=== PATIENT | female | born 1980 | race Caucasian/White ===

== ENCOUNTER 2021-12-18 11:25 | Emergency (ER) | payer OTHER ==
[2021-12-18 11:54] VITALS: BP 119/80; PULSE 101; RESP 17; TEMP 97.8; BMI 32.1
[2021-12-18] MEDS ORDERED: ACETAMINOPHEN 1000 MG/100 ML BAG IVPB ONE (12:52)
[2021-12-18] MEDS ORDERED: SODIUM CHLORIDE 0.9% 500 ML INFUS.BAG IV ONE (12:52)
[2021-12-18] MEDS ORDERED: KETOROLAC TROMETHAMINE 30 MG/1 ML VIAL IVPUSH ONE (12:52)
[2021-12-18] MEDS ORDERED: KETOROLAC TROMETHAMINE 30 MG/1 ML VIAL ONE (13:15)
[2021-12-18] MEDS ORDERED: ACETAMINOPHEN INJECTION 100 ML IVPB ONE (13:15)
[2021-12-18 13:56] LABS: BASO % 0.8 % (0-2.0); EOS % 0.3 % (0-4.5); HEMATOCRIT 26.2 % (32.4-45.2); HEMOGLOBIN 7.9 GM/dL (10.7-15.3); LYMPH % 11.3 % (8-40); MCH 18.8 pg (25.7-33.7); MCHC 30.1 g/dl (32.0-36.0); MEAN CELL VOLUME 62.6 fl (80-96); MEAN PLT VOLUME 8.4 fl (7.5-11.1); MONO % 8.7 % (3.8-10.2); NEUT % 78.9 % (42.8-82.8); PLATELET COUNT 284 10^3/uL (134-434); RBC 4.19 M/mm3 (3.60-5.2); RDW 19.2 % (11.6-15.6); WHITE BLOOD COUNT 13.3 K/mm3 (4.0-10.0)
[2021-12-18 14:14] LABS: CALCIUM 8.7 mg/dL (8.5-10.1)
[2021-12-18 14:15] LABS: ALBUMIN 3.2 g/dl (3.4-5.0); BLOOD UREA NITROGEN 4.4 mg/dL (7-18)
[2021-12-18 14:18] LABS: CREATININE 0.4 mg/dL (0.55-1.3)
[2021-12-18 14:19] LABS: BILIRUBIN,TOTAL 0.5 mg/dL (0.2-1); TOT PROT 7.3 g/dl (6.4-8.2)
[2021-12-18 14:33] LABS: ANISOCYTOSIS 3+; MACROCYTOSIS 0
[2021-12-18 15:03] LABS: HCG,QUALITATIVE URINE Negative
[2021-12-18 15:10] LABS: EPI CELLS 20 /uL (0-25.1); HYALINE CASTS 15 /uL (0-3.1); PH,URINE 5.5 (5.0-8.0); URINE APPEARANCE CLEAR; URINE BACTERIA 3159 /uL (0-1359); URINE BILIRUBIN NEGATIVE (NEGATIVE); URINE COLOR YELLOW; URINE GLUCOSE (UA) NEGATIVE (NEGATIVE); URINE KETONE TRACE (NEGATIVE); URINE LEUK ESTERASE TRACE (NEGATIVE); URINE NITRITE NEGATIVE (NEGATIVE); URINE PROTEIN 1+ (NEGATIVE); URINE UROBILINOGEN 0.2 mg/dL (0.2-1.0); URINE WBC 165 /uL (0-25.8)
[2021-12-18 15:19] LABS: URINE RBC 65 /uL (0-23.9)
== END 2021-12-18 18:40 | disposition home or self-care (01) ==
LOC: JER 11:25
PROC: 3E033GC Introduction of Other Therapeutic Substance into Peripheral Vein, Percutaneous Approach (ICD-10-PCS; principal; 2021-12-18)
DX: D25.9 Leiomyoma of uterus, unspecified (principal)
CPT/HCPCS: 36415; 74177-TC; 80053; 81003; 84703; 85025; 87086; 96374; 96375; 99285-25; Q9967

== ENCOUNTER 2022-05-03 14:58 | Inpatient (IN) | payer OTHER ==
[2022-05-04 09:32] VITALS: BMI 32.7
[2022-05-06] MEDS ORDERED: ceFAZolin SODIUM 1 GM VIAL ONE ×2 (06:25→17:16)
[2022-05-06] MEDS ORDERED: GABAPENTIN 300 MG CAPSULE PO ONE (07:00)
[2022-05-06] MEDS ORDERED: CEFAZOLIN 2 GM in DEXTROSE 5%-WATER - 100 ML IVPB ONE (07:00)
[2022-05-06] MEDS ORDERED: ACETAMINOPHEN 1000 MG/100 ML BAG IVPB ONE (07:00)
[2022-05-06] MEDS ORDERED: TRANEXAMIC ACID 1000 MG/10 ML VIAL IVPUSH ONE (07:00)
[2022-05-06] MEDS ORDERED: BUPIVACAINE HCL/PF 0.25% (2.5MG/ML) 10 ML VIAL ONE (07:34)
[2022-05-06] MEDS ORDERED: BUPIVACAINE LIPOSOME/PF (EXPAREL) 266 MG/20 ML VIAL ONE (07:34)
[2022-05-06] MEDS ORDERED: PROPOFOL 20 ML ONE ×2 (07:36→08:16)
[2022-05-06] MEDS ORDERED: ROCURONIUM BROMIDE 50 MG/5 ML SYRINGE ONE (07:36)
[2022-05-06] MEDS ORDERED: SEVOFLURANE 250 ML BTL ONE (07:37)
[2022-05-06] MEDS ORDERED: MIDAZOLAM HCL 2 MG/2 ML SINGLE DOSE VIAL ONE (07:37)
[2022-05-06] MEDS ORDERED: ceFAZolin 2 GRAM PREMIX BAG IVPB ONE (08:12)
[2022-05-06] MEDS ORDERED: HYDROmorphone HCl 2 MG/ML VIAL ONE (08:45)
[2022-05-06] MEDS ORDERED: DEXAMETHASONE SOD PHOSPHATE 4 MG/1 ML VIAL ONE (10:08)
[2022-05-06] MEDS ORDERED: ONDANSETRON 4 MG/2 ML VIAL ONE (10:08)
[2022-05-06] MEDS ORDERED: BISACODYL 5 MG TABLET.DR (FP) PO PRN (10:49)
[2022-05-06] MEDS ORDERED: ONDANSETRON 4 MG/2 ML VIAL IVPUSH PRN ×2 (10:49→10:52)
[2022-05-06] MEDS ORDERED: ACETAMINOPHEN 325 MG TABLET (FP) PO PRN (10:49)
[2022-05-06] MEDS ORDERED: oxyCODONE HCL 5 MG TABLET PO PRN (10:49)
[2022-05-06] MEDS ORDERED: IBUPROFEN 800 MG/8 ML IJ IVPB PRN (10:49)
[2022-05-06] MEDS ORDERED: DOCUSATE SODIUM 100 MG CAPSULE (FP) PO PRN (10:49)
[2022-05-06] MEDS ORDERED: PROMETHAZINE HCL 25 MG/1 ML VIAL IVPUSH PRN (10:52)
[2022-05-06] MEDS: LACTATED RINGERS SOLUTION 1,000 ML IV SCH (12:30)
[2022-05-06] MEDS ORDERED: IBUPROFEN 800 MG/8 ML IJ IVPB ONE (15:06)
[2022-05-06] MEDS: ACETAMINOPHEN 1000 MG/100 ML BAG IVPB SCH ×2 (16:50→22:45)
[2022-05-06] MEDS: CEFAZOLIN 1 GM in DEXTROSE 5%-WATER - 50 ML IVPB SCH (17:28)
[2022-05-06 18:34] LABS: HEMATOCRIT 40.7 % (32.4-45.2); HEMOGLOBIN 13.3 GM/dL (10.7-15.3); MCH 29.8 pg (25.7-33.7); MCHC 32.6 g/dl (32.0-36.0); MEAN CELL VOLUME 91.2 fl (80-96); MEAN PLT VOLUME 9.4 fl (7.5-11.1); PLATELET COUNT 206 10^3/uL (134-434); RBC 4.46 M/mm3 (3.60-5.2); RDW 13.2 % (11.6-15.6); WHITE BLOOD COUNT 19.1 K/mm3 (4.0-10.0)
[2022-05-06] MEDS: oxyCODONE HCL 5 MG TABLET PO PRN (19:01)
[2022-05-06 19:20] LABS: BLOOD UREA NITROGEN 8.5 mg/dL (7-18); CALCIUM 8.2 mg/dL (8.5-10.1)
[2022-05-06 19:24] LABS: CREATININE 0.5 mg/dL (0.55-1.3)
[2022-05-07] MEDS: ACETAMINOPHEN 1000 MG/100 ML BAG IVPB SCH ×3 (02:06→09:56)
[2022-05-07] MEDS: CEFAZOLIN 1 GM in DEXTROSE 5%-WATER - 50 ML IVPB SCH ×2 (02:07→09:40)
[2022-05-07] MEDS: ENOXAPARIN NA (PORCINE) 40 MG/0.4 ML DISP.SYRIN SQ SCH (09:40)
[2022-05-07] MEDS: LACTATED RINGERS SOLUTION 1,000 ML IV SCH (10:08)
[2022-05-07] MEDS: oxyCODONE HCL 5 MG TABLET PO PRN (13:55)
[2022-05-07] MEDS: SIMETHICONE 80 MG TAB.CHEW (FP) PO PRN (14:03)
[2022-05-07] MEDS ORDERED: IBUPROFEN 600 MG TABLET (FP) PO PRN (14:42)
[2022-05-07] MEDS ORDERED: oxyCODONE HCL 5 MG TABLET PO PRN (14:43)
[2022-05-07 15:50] VITALS: RESP 20
[2022-05-07 17:00] LABS: BASO % 0.3 % (0-2.0); EOS % 0.1 % (0-4.5); HEMATOCRIT 37.3 % (32.4-45.2); HEMOGLOBIN 12.3 GM/dL (10.7-15.3); LYMPH % 7.1 % (8-40); MCH 30.2 pg (25.7-33.7); MCHC 32.9 g/dl (32.0-36.0); MEAN CELL VOLUME 91.7 fl (80-96); MEAN PLT VOLUME 9.6 fl (7.5-11.1); MONO % 6.7 % (3.8-10.2); NEUT % 85.8 % (42.8-82.8); PLATELET COUNT 196 10^3/uL (134-434); RBC 4.07 M/mm3 (3.60-5.2); RDW 13.1 % (11.6-15.6); WHITE BLOOD COUNT 14.1 K/mm3 (4.0-10.0)
[2022-05-07 17:30] LABS: BLOOD UREA NITROGEN 5.7 mg/dL (7-18); CALCIUM 8.3 mg/dL (8.5-10.1)
[2022-05-07] MEDS: ACETAMINOPHEN 500 MG TABLET (FP) PO SCH ×2 (17:33→23:09)
[2022-05-07 17:34] LABS: CREATININE 0.5 mg/dL (0.55-1.3)
[2022-05-08] MEDS: ACETAMINOPHEN 500 MG TABLET (FP) PO SCH (08:20)
[2022-05-08] MEDS: SIMETHICONE 80 MG TAB.CHEW (FP) PO PRN (09:31)
[2022-05-08] MEDS: ENOXAPARIN NA (PORCINE) 40 MG/0.4 ML DISP.SYRIN SQ SCH (09:32)
[2022-05-08 10:45] VITALS: BP 131/76; PULSE 106; TEMP 98.6
[2022-05-08 12:52] LABS: BASO % 0.5 % (0-2.0); EOS % 0.4 % (0-4.5); HEMATOCRIT 36.2 % (32.4-45.2); LYMPH % 7.4 % (8-40); MCH 30.2 pg (25.7-33.7); MCHC 33.2 g/dl (32.0-36.0); MEAN CELL VOLUME 90.9 fl (80-96); MEAN PLT VOLUME 9.6 fl (7.5-11.1); MONO % 7.6 % (3.8-10.2); NEUT % 84.1 % (42.8-82.8); PLATELET COUNT 212 10^3/uL (134-434); RBC 3.98 M/mm3 (3.60-5.2); RDW 12.7 % (11.6-15.6); WHITE BLOOD COUNT 13.9 K/mm3 (4.0-10.0)
== END 2022-05-08 14:30 | disposition home or self-care (01) | DRG 519 ==
LOC: J2C 05-06 04:03 → J8W 05-06 18:35 → UNDODISIN 05-06 19:19
PROVIDERS: ADMIT Obstetrics & Gynecology; ATTEND Obstetrics & Gynecology
PROC: 0UT00ZZ Resection of Right Ovary, Open Approach (ICD-10-PCS; 2022-05-06)
PROC: 0UT70ZZ Resection of Bilateral Fallopian Tubes, Open Approach (ICD-10-PCS; 2022-05-06)
PROC: 0UT90ZZ Resection of Uterus, Open Approach (ICD-10-PCS; principal; 2022-05-06 07:30)
DX: D25.9 Leiomyoma of uterus, unspecified (principal); N83.201 Unspecified ovarian cyst, right side
CPT/HCPCS: 36415; 80048; 81025; 85025; 85027; 88307-TC; 94010; 94760

== ENCOUNTER 2022-05-15 02:46 | Inpatient (IN) | payer OTHER ==
[2022-05-15] MEDS ORDERED: LACTATED RINGERS SOLUTION 1000 ML INFUS.BAG IV ONE (03:08)
[2022-05-15] MEDS ORDERED: ceFAZolin 2 GRAM PREMIX BAG IVPB ONE (03:25)
[2022-05-15] MEDS ORDERED: ACETAMINOPHEN 1000 MG/100 ML BAG IVPB ONE (03:26)
[2022-05-15] MEDS ORDERED: ACETAMINOPHEN INJECTION 100 ML IVPB ONE (03:30)
[2022-05-15 03:34] LABS: HEMATOCRIT 34.2 % (32.4-45.2); HEMOGLOBIN 11.4 GM/dL (10.7-15.3); MCH 29.4 pg (25.7-33.7); MCHC 33.2 g/dl (32.0-36.0); MEAN CELL VOLUME 88.7 fl (80-96); MEAN PLT VOLUME 8.5 fl (7.5-11.1); PLATELET COUNT 554 10^3/uL (134-434); RBC 3.86 M/mm3 (3.60-5.2); RDW 12.9 % (11.6-15.6); WHITE BLOOD COUNT 23.2 K/mm3 (4.0-10.0)
[2022-05-15] MEDS ORDERED: ceFAZolin SODIUM 1 GM VIAL ONE (03:34)
[2022-05-15 03:41] LABS: INR 1.71 (0.83-1.09); PROTHROMBIN TIME (PATIENT) 19.8 SEC (9.7-13.0)
[2022-05-15] MEDS ORDERED: CEFAZOLIN SODIUM 2 GM in DEXTROSE 5%-WATER 100 ML IVPB ONE (03:45)
[2022-05-15 03:54] LABS: ALBUMIN 2.7 g/dl (3.4-5.0); BLOOD UREA NITROGEN 8.7 mg/dL (7-18); CALCIUM 8.8 mg/dL (8.5-10.1)
[2022-05-15 03:57] LABS: CREATININE 0.6 mg/dL (0.55-1.3)
[2022-05-15 03:59] LABS: TOT PROT 6.7 g/dl (6.4-8.2)
[2022-05-15] MEDS ORDERED: VANCOMYCIN 1,000 MG in DEXTROSE 5%-WATER - 250 ML IVPB ONE (04:09)
[2022-05-15] MEDS ORDERED: CLINDAMYCIN 900 MG PREMIX IVPB 900 MG/50 ML BAG IVPB ONE ×2 (04:10→04:14)
[2022-05-15] MEDS ORDERED: VANCOMYCIN/WATER FOR INJ (PEG) 1,000 MG/200 ML BAG IVPB ONE (04:12)
[2022-05-15 04:22] LABS: ANISOCYTOSIS 2+; MACROCYTOSIS 0
[2022-05-15] MEDS ORDERED: PANTOPRAZOLE SODIUM 40 MG VIAL IVPUSH ONE (06:35)
[2022-05-15 06:46] LABS: BASO % 0.4 % (0-2.0); HEMATOCRIT 29.5 % (32.4-45.2); HEMOGLOBIN 9.9 GM/dL (10.7-15.3); LYMPH % 5.5 % (8-40); MCH 29.9 pg (25.7-33.7); MCHC 33.5 g/dl (32.0-36.0); MEAN PLT VOLUME 8.3 fl (7.5-11.1); MONO % 9.5 % (3.8-10.2); NEUT % 84.6 % (42.8-82.8); PLATELET COUNT 426 10^3/uL (134-434); RBC 3.31 M/mm3 (3.60-5.2); RDW 12.7 % (11.6-15.6); WHITE BLOOD COUNT 17.1 K/mm3 (4.0-10.0)
[2022-05-15] MEDS: LACTATED RINGERS SOLUTION 1,000 ML/1,000 ML INFUS.BAG IV SCH (06:49)
[2022-05-15 07:08] LABS: ALBUMIN 2.4 g/dl (3.4-5.0); BLOOD UREA NITROGEN 7.5 mg/dL (7-18); CALCIUM 8.2 mg/dL (8.5-10.1)
[2022-05-15 07:11] LABS: CREATININE 0.6 mg/dL (0.55-1.3)
[2022-05-15 07:13] LABS: BILIRUBIN,TOTAL 0.8 mg/dL (0.2-1); TOT PROT 5.8 g/dl (6.4-8.2)
[2022-05-15] MEDS ORDERED: PANTOPRAZOLE SODIUM 40 MG/100 ML BAG IVPB ONE (07:51)
[2022-05-15] MEDS ORDERED: ONDANSETRON 4 MG/2 ML VIAL IVPUSH STA (10:20)
[2022-05-15] MEDS: POTASSIUM CHLORIDE 10 MEQ PREMIX IVPB (POTASSIUM RIDER) IVPB SCH ×4 (10:33→12:29)
[2022-05-15] MEDS: PIPERACILLIN/TAZOB 3.375 GM 3.375 GM in DEXTROSE 5%-WATER - 50 ML IVPB SCH ×2 (10:33→17:23)
[2022-05-15 13:40] VITALS: BMI 30.5
[2022-05-15] MEDS ORDERED: SUCCINYLCHOLINE CHLORIDE 200 MG/10 ML SYRINGE ONE (19:37)
[2022-05-15] MEDS ORDERED: ROCURONIUM BROMIDE 50 MG/5 ML SYRINGE ONE (19:37)
[2022-05-15] MEDS ORDERED: PROPOFOL 20 ML ONE ×2 (19:37→19:44)
[2022-05-15] MEDS ORDERED: MIDAZOLAM HCL 2 MG/2 ML SINGLE DOSE VIAL ONE (19:38)
[2022-05-15] MEDS ORDERED: morphine SULFATE 4 MG/ML VIAL IVPUSH PRN (20:17)
[2022-05-15 23:06] LABS: HEMATOCRIT 32.7 % (32.4-45.2); HEMOGLOBIN 10.8 GM/dL (10.7-15.3); MCH 29.8 pg (25.7-33.7); MCHC 33.2 g/dl (32.0-36.0); MEAN CELL VOLUME 89.7 fl (80-96); MEAN PLT VOLUME 8.4 fl (7.5-11.1); PLATELET COUNT 513 10^3/uL (134-434); RBC 3.64 M/mm3 (3.60-5.2); WHITE BLOOD COUNT 17.7 K/mm3 (4.0-10.0)
[2022-05-15 23:35] LABS: BLOOD UREA NITROGEN 4.4 mg/dL (7-18); CALCIUM 8.4 mg/dL (8.5-10.1); MAGNESIUM 1.9 mg/dL (1.8-2.4)
[2022-05-15 23:38] LABS: PHOSPHOROUS 2.8 mg/dL (2.5-4.9)
[2022-05-15 23:39] LABS: CREATININE 0.3 mg/dL (0.55-1.3)
[2022-05-16] MEDS: PIPERACILLIN/TAZOB 3.375 GM 3.375 GM in DEXTROSE 5%-WATER - 50 ML IVPB SCH ×3 (01:58→17:41)
[2022-05-16] MEDS: HEPARIN NA (PORCINE) 5,000 UNITS/ML 1ML VIAL SQ SCH ×3 (05:21→21:24)
[2022-05-16] MEDS: LACTATED RINGERS SOLUTION 1,000 ML/1,000 ML INFUS.BAG IV SCH ×2 (05:21→17:41)
[2022-05-16] MEDS: VANCOMYCIN/WATER FOR INJ (PEG) 1,000 MG/200 ML BAG IVPB SCH ×2 (05:21→16:06)
[2022-05-16 08:06] LABS: HEMATOCRIT 32.6 % (32.4-45.2); HEMOGLOBIN 10.7 GM/dL (10.7-15.3); MCH 29.5 pg (25.7-33.7); MCHC 32.7 g/dl (32.0-36.0); MEAN CELL VOLUME 90.1 fl (80-96); MEAN PLT VOLUME 8.9 fl (7.5-11.1); PLATELET COUNT 547 10^3/uL (134-434); RBC 3.62 M/mm3 (3.60-5.2); RDW 12.8 % (11.6-15.6); WHITE BLOOD COUNT 14.9 K/mm3 (4.0-10.0)
[2022-05-16 08:12] LABS: BLOOD UREA NITROGEN 6.7 mg/dL (7-18); CALCIUM 8.6 mg/dL (8.5-10.1); MAGNESIUM 2.1 mg/dL (1.8-2.4)
[2022-05-16 08:16] LABS: CREATININE 0.2 mg/dL (0.55-1.3); PHOSPHOROUS 3.9 mg/dL (2.5-4.9)
[2022-05-16] MEDS: TETRACAINE/BENZOCAINE/BUTAMBEN 20 GM SPR TP SCH (21:22)
[2022-05-16] MEDS: ACETAMINOPHEN 1000 MG/100 ML BAG IVPB PRN (21:23)
[2022-05-17] MEDS: PIPERACILLIN/TAZOB 3.375 GM 3.375 GM in DEXTROSE 5%-WATER - 50 ML IVPB SCH ×3 (02:49→17:52)
[2022-05-17] MEDS: VANCOMYCIN/WATER FOR INJ (PEG) 1,000 MG/200 ML BAG IVPB SCH ×2 (05:37→16:07)
[2022-05-17] MEDS: HEPARIN NA (PORCINE) 5,000 UNITS/ML 1ML VIAL SQ SCH ×3 (05:38→22:05)
[2022-05-17 07:48] LABS: BASO % 0.6 % (0-2.0); EOS % 1.6 % (0-4.5); HEMATOCRIT 32.2 % (32.4-45.2); HEMOGLOBIN 10.7 GM/dL (10.7-15.3); LYMPH % 11.7 % (8-40); MCHC 33.3 g/dl (32.0-36.0); MEAN CELL VOLUME 90.2 fl (80-96); MEAN PLT VOLUME 8.5 fl (7.5-11.1); MONO % 8.6 % (3.8-10.2); NEUT % 77.5 % (42.8-82.8); PLATELET COUNT 589 10^3/uL (134-434); RBC 3.58 M/mm3 (3.60-5.2); WHITE BLOOD COUNT 10.4 K/mm3 (4.0-10.0)
[2022-05-17 07:55] LABS: BLOOD UREA NITROGEN 8.7 mg/dL (7-18); CALCIUM 8.4 mg/dL (8.5-10.1); MAGNESIUM 1.8 mg/dL (1.8-2.4)
[2022-05-17 07:58] LABS: CREATININE 0.3 mg/dL (0.55-1.3); PHOSPHOROUS 2.6 mg/dL (2.5-4.9)
[2022-05-17 07:59] LABS: BILIRUBIN,TOTAL 0.4 mg/dL (0.2-1)
[2022-05-17 08:00] LABS: TOT PROT 5.2 g/dl (6.4-8.2)
[2022-05-17] MEDS: KCL 10 MEQ IVPB 10 MEQ/100 ML INFUS.BAG IVPB SCH ×2 (09:59→10:59)
[2022-05-17] MEDS: LACTATED RINGERS SOLUTION 1,000 ML/1,000 ML INFUS.BAG IV SCH ×2 (10:26→22:05)
[2022-05-17] MEDS: TETRACAINE/BENZOCAINE/BUTAMBEN 20 GM SPR TP SCH (10:26)
[2022-05-17] MEDS: ACETAMINOPHEN 1000 MG/100 ML BAG IVPB PRN (11:52)
[2022-05-18] MEDS: morphine SULFATE 4 MG/ML VIAL IVPUSH PRN ×3 (01:40→21:00)
[2022-05-18] MEDS: PIPERACILLIN/TAZOB 3.375 GM 3.375 GM in DEXTROSE 5%-WATER - 50 ML IVPB SCH ×2 (01:40→10:01)
[2022-05-18] MEDS ORDERED: VANCOMYCIN/WATER FOR INJ (PEG) 1,000 MG/200 ML BAG IVPB SCH (05:00)
[2022-05-18] MEDS: LACTATED RINGERS SOLUTION 1,000 ML/1,000 ML INFUS.BAG IV SCH (05:03)
[2022-05-18] MEDS: HEPARIN NA (PORCINE) 5,000 UNITS/ML 1ML VIAL SQ SCH ×3 (05:03→21:00)
[2022-05-18 08:33] LABS: BASO % 1.2 % (0-2.0); EOS % 2.1 % (0-4.5); HEMATOCRIT 31.2 % (32.4-45.2); HEMOGLOBIN 10.4 GM/dL (10.7-15.3); LYMPH % 12.4 % (8-40); MCH 29.8 pg (25.7-33.7); MCHC 33.3 g/dl (32.0-36.0); MEAN CELL VOLUME 89.4 fl (80-96); MEAN PLT VOLUME 8.5 fl (7.5-11.1); MONO % 8.6 % (3.8-10.2); NEUT % 75.7 % (42.8-82.8); PLATELET COUNT 619 10^3/uL (134-434); RBC 3.49 M/mm3 (3.60-5.2); RDW 12.8 % (11.6-15.6); WHITE BLOOD COUNT 11.9 K/mm3 (4.0-10.0)
[2022-05-18 08:52] LABS: CALCIUM 7.9 mg/dL (8.5-10.1)
[2022-05-18 08:53] LABS: BLOOD UREA NITROGEN 4.8 mg/dL (7-18)
[2022-05-18 08:56] LABS: CREATININE 0.4 mg/dL (0.55-1.3)
[2022-05-18] MEDS: TETRACAINE/BENZOCAINE/BUTAMBEN 20 GM SPR TP SCH (11:31)
[2022-05-18] MEDS: KCL 10 MEQ IVPB 10 MEQ/100 ML INFUS.BAG IVPB SCH ×2 (12:15→13:21)
[2022-05-18] MEDS: AMPICILLIN NA/SULBACTAM NA 3 GM in SODIUM CHLORIDE 100 ML IVPB SCH ×2 (15:51→21:00)
[2022-05-19] MEDS: AMPICILLIN NA/SULBACTAM NA 3 GM in SODIUM CHLORIDE 100 ML IVPB SCH ×4 (02:48→22:09)
[2022-05-19] MEDS: HEPARIN NA (PORCINE) 5,000 UNITS/ML 1ML VIAL SQ SCH ×3 (05:51→22:09)
[2022-05-19 08:10] LABS: BASO % 0.6 % (0-2.0); EOS % 2.3 % (0-4.5); HEMATOCRIT 33.1 % (32.4-45.2); MCH 29.7 pg (25.7-33.7); MCHC 33.3 g/dl (32.0-36.0); MEAN CELL VOLUME 89.3 fl (80-96); MEAN PLT VOLUME 7.9 fl (7.5-11.1); NEUT % 72.1 % (42.8-82.8); PLATELET COUNT 603 10^3/uL (134-434); RDW 12.9 % (11.6-15.6); WHITE BLOOD COUNT 10.6 K/mm3 (4.0-10.0)
[2022-05-19 08:29] LABS: CALCIUM 8.1 mg/dL (8.5-10.1)
[2022-05-19 08:30] LABS: BLOOD UREA NITROGEN 3.1 mg/dL (7-18)
[2022-05-19 08:33] LABS: CREATININE 0.3 mg/dL (0.55-1.3)
[2022-05-19] MEDS: POLYETHYLENE GLYCOL (HEALTHYLAX) 3350 17 GM PACKET PO SCH (09:55)
[2022-05-19] MEDS: LACTATED RINGERS SOLUTION 1,000 ML/1,000 ML INFUS.BAG IV SCH (09:55)
[2022-05-19] MEDS: TETRACAINE/BENZOCAINE/BUTAMBEN 20 GM SPR TP SCH (09:55)
[2022-05-20] MEDS: AMPICILLIN NA/SULBACTAM NA 3 GM in SODIUM CHLORIDE 100 ML IVPB SCH ×4 (02:23→21:41)
[2022-05-20] MEDS: HEPARIN NA (PORCINE) 5,000 UNITS/ML 1ML VIAL SQ SCH ×3 (05:45→21:41)
[2022-05-20 07:45] LABS: HEMATOCRIT 31.6 % (32.4-45.2); HEMOGLOBIN 10.8 GM/dL (10.7-15.3); MCH 30.4 pg (25.7-33.7); MCHC 34.1 g/dl (32.0-36.0); MEAN CELL VOLUME 89.1 fl (80-96); MEAN PLT VOLUME 8.6 fl (7.5-11.1); PLATELET COUNT 672 10^3/uL (134-434); RBC 3.54 M/mm3 (3.60-5.2); RDW 12.9 % (11.6-15.6); WHITE BLOOD COUNT 9.8 K/mm3 (4.0-10.0)
[2022-05-20 08:19] LABS: BLOOD UREA NITROGEN 3.3 mg/dL (7-18); CALCIUM 8.4 mg/dL (8.5-10.1)
[2022-05-20 08:22] LABS: CREATININE 0.3 mg/dL (0.55-1.3)
[2022-05-20 08:49] LABS: ANISOCYTOSIS 1+; MACROCYTOSIS 0
[2022-05-20] MEDS: POLYETHYLENE GLYCOL (HEALTHYLAX) 3350 17 GM PACKET PO SCH (09:45)
[2022-05-20] MEDS: TETRACAINE/BENZOCAINE/BUTAMBEN 20 GM SPR TP SCH ×2 (15:18→16:58)
[2022-05-20] MEDS: AMINO ACIDS/PROTEIN HYDROLYS 30 ML LIQUID.PKT PO SCH (16:59)
[2022-05-20] MEDS: LACTATED RINGERS SOLUTION 1,000 ML/1,000 ML INFUS.BAG IV SCH (18:44)
[2022-05-21] MEDS: AMPICILLIN NA/SULBACTAM NA 3 GM in SODIUM CHLORIDE 100 ML IVPB SCH ×4 (03:11→21:25)
[2022-05-21] MEDS: HEPARIN NA (PORCINE) 5,000 UNITS/ML 1ML VIAL SQ SCH ×3 (05:32→21:25)
[2022-05-21] MEDS: AMINO ACIDS/PROTEIN HYDROLYS 30 ML LIQUID.PKT PO SCH ×2 (08:49→17:05)
[2022-05-21 09:41] LABS: HEMATOCRIT 36.4 % (32.4-45.2); HEMOGLOBIN 12.1 GM/dL (10.7-15.3); MCH 30.1 pg (25.7-33.7); MCHC 33.2 g/dl (32.0-36.0); MEAN CELL VOLUME 90.6 fl (80-96); MEAN PLT VOLUME 8.7 fl (7.5-11.1); PLATELET COUNT 743 10^3/uL (134-434); RBC 4.02 M/mm3 (3.60-5.2); RDW 12.9 % (11.6-15.6); WHITE BLOOD COUNT 10.6 K/mm3 (4.0-10.0)
[2022-05-21] MEDS: POLYETHYLENE GLYCOL (HEALTHYLAX) 3350 17 GM PACKET PO SCH (10:23)
[2022-05-21] MEDS: TETRACAINE/BENZOCAINE/BUTAMBEN 20 GM SPR TP SCH (10:23)
[2022-05-21 10:57] LABS: ANISOCYTOSIS 1+; MACROCYTOSIS 0
[2022-05-21] MEDS: LACTATED RINGERS SOLUTION 1,000 ML/1,000 ML INFUS.BAG IV SCH (21:25)
[2022-05-22] MEDS: AMPICILLIN NA/SULBACTAM NA 3 GM in SODIUM CHLORIDE 100 ML IVPB SCH ×4 (03:32→21:16)
[2022-05-22] MEDS: HEPARIN NA (PORCINE) 5,000 UNITS/ML 1ML VIAL SQ SCH ×3 (05:51→21:52)
[2022-05-22] MEDS: TETRACAINE/BENZOCAINE/BUTAMBEN 20 GM SPR TP SCH (10:17)
[2022-05-22] MEDS: AMINO ACIDS/PROTEIN HYDROLYS 30 ML LIQUID.PKT PO SCH ×2 (10:17→16:56)
[2022-05-22] MEDS: POLYETHYLENE GLYCOL (HEALTHYLAX) 3350 17 GM PACKET PO SCH (10:17)
[2022-05-22] MEDS: LACTATED RINGERS SOLUTION 1,000 ML/1,000 ML INFUS.BAG IV SCH (19:02)
[2022-05-23] MEDS: AMPICILLIN NA/SULBACTAM NA 3 GM in SODIUM CHLORIDE 100 ML IVPB SCH ×4 (03:29→23:35)
[2022-05-23] MEDS: HEPARIN NA (PORCINE) 5,000 UNITS/ML 1ML VIAL SQ SCH ×3 (06:32→23:35)
[2022-05-23] MEDS: AMINO ACIDS/PROTEIN HYDROLYS 30 ML LIQUID.PKT PO SCH ×2 (08:25→16:36)
[2022-05-23 09:56] LABS: HEMATOCRIT 36.9 % (32.4-45.2); HEMOGLOBIN 12.1 GM/dL (10.7-15.3); MCHC 32.7 g/dl (32.0-36.0); MEAN CELL VOLUME 91.5 fl (80-96); MEAN PLT VOLUME 8.8 fl (7.5-11.1); PLATELET COUNT 713 10^3/uL (134-434); RBC 4.03 M/mm3 (3.60-5.2); RDW 13.4 % (11.6-15.6); WHITE BLOOD COUNT 8.7 K/mm3 (4.0-10.0)
[2022-05-23] MEDS: TETRACAINE/BENZOCAINE/BUTAMBEN 20 GM SPR TP SCH (10:08)
[2022-05-23] MEDS: POLYETHYLENE GLYCOL (HEALTHYLAX) 3350 17 GM PACKET PO SCH (10:08)
[2022-05-23 10:23] LABS: CALCIUM 8.8 mg/dL (8.5-10.1)
[2022-05-23 10:25] LABS: BLOOD UREA NITROGEN 7.3 mg/dL (7-18)
[2022-05-23 10:28] LABS: CREATININE 0.4 mg/dL (0.55-1.3)
[2022-05-23 11:10] LABS: ANISOCYTOSIS 0; MACROCYTOSIS 0
[2022-05-24] MEDS: AMPICILLIN NA/SULBACTAM NA 3 GM in SODIUM CHLORIDE 100 ML IVPB SCH ×2 (04:17→09:17)
[2022-05-24] MEDS: LACTATED RINGERS SOLUTION 1,000 ML/1,000 ML INFUS.BAG IV SCH (04:23)
[2022-05-24] MEDS: HEPARIN NA (PORCINE) 5,000 UNITS/ML 1ML VIAL SQ SCH ×2 (06:20→13:25)
[2022-05-24] MEDS: POLYETHYLENE GLYCOL (HEALTHYLAX) 3350 17 GM PACKET PO SCH (09:17)
[2022-05-24] MEDS: TETRACAINE/BENZOCAINE/BUTAMBEN 20 GM SPR TP SCH (09:17)
[2022-05-24] MEDS: AMINO ACIDS/PROTEIN HYDROLYS 30 ML LIQUID.PKT PO SCH (09:17)
[2022-05-24 19:10] VITALS: BP 118/67; PULSE 88; RESP 18; TEMP 98.2
== END 2022-05-24 19:15 | disposition home health service (06) | DRG 721 ==
LOC: JER 02:46 → JERBED 05:54 → JICU 08:25 → J7W 05-17 18:48
PROVIDERS: ADMIT Family Medicine; ATTEND Family Medicine
PROC: 3E1038Z Irrigation of Skin and Mucous Membranes using Irrigating Substance, Percutaneous Approach (ICD-10-PCS; 2022-05-15)
PROC: 02HV33Z Insertion of Infusion Device into Superior Vena Cava, Percutaneous Approach (ICD-10-PCS; 2022-05-15)
PROC: B548ZZA Ultrasonography of Superior Vena Cava, Guidance (ICD-10-PCS; 2022-05-15)
PROC: 0JC80ZZ Extirpation of Matter from Abdomen Subcutaneous Tissue and Fascia, Open Approach (ICD-10-PCS; principal; 2022-05-15 19:00)
DX: T81.49XA Infection following a procedure, other surgical site, initial encounter (principal); U07.1 COVID-19; I96 Gangrene, not elsewhere classified; E66.9 Obesity, unspecified; K91.31 Postprocedural partial intestinal obstruction; Z68.30 Body mass index [BMI] 30.0-30.9, adult; Y83.8 Other surgical procedures as the cause of abnormal reaction of the patient, or of later complication, without mention of misadventure at the time of the procedure
CPT/HCPCS: 0241U-QW; 36415; 71045-TC-FY; 74176-TC; 74177-TC; 80048; 80053; 83605; 83735; 84100; 85025; 85027; 85610; 86850; 86900; 86901; 87040; 87070; 87076; 87086; 87186; 87205; 93005; 93010; 93306-TC; 99285-25; J1644; Q9967